=== PATIENT | male | born 1960 | race Caucasian/White ===

== ENCOUNTER → 2017-01-29 | Outpatient (CLI) | payer OTHER ==
[~2017-01-29] MED LIST: CIPR500T19; VICO5TAB
--- NOTE | 2017-01-29 08:43 | REP ---
CT of the chest without IV contrast: Comparison is the PA and lateral plain film study dated 06/01/2013. There are no infiltrates or effusions. There are no masses or nodules. The lung page are otherwise unremarkable. There is no mediastinal or axillary lymph node enlargement. The study is insensitive for hilar lymph node enlargement in the absence of IV contrast. The unenhanced thoracic aorta is unremarkable. Cardiac size is normal. There is no pericardial effusion. The upper abdomen. The visualized portions of the unenhanced liver, gallbladder, pancreas and spleen are unremarkable. Spleen measures 13 ml craniocaudad length and is borderline enlarged. The adrenals and renal upper poles are unremarkable. Impression: Borderline splenomegaly. Otherwise, negative CT study of the chest. Signed by Erik Perez MD 01/29/2017 08:34 A
== END ==
LOC: M RAD 07:45
PROVIDERS: ATTEND Internal Medicine Cardiovascular Disease
DX: J42 Unspecified chronic bronchitis (principal)

== ENCOUNTER → 2020-05-14 | Outpatient (CLI) | payer SELFPAY | LOC: M LABSMTC 10:16 | PROVIDERS: ATTEND Pediatrics | DX: Z20.828 Contact with and (suspected) exposure to other viral communicable diseases (principal) ==